=== PATIENT | male | born 1960 | race Native Hawaiian/Other Pacific Islander ===

== ENCOUNTER 2021-06-06 10:12 | Inpatient (IN) | payer OTHER ==
[~2021-06-06] VITALS: Ht 182.9 cm; Wt 96.7 kg
[2021-06-06 10:40] VITALS: BP 124/71; TEMP 98.3; Ht 182.9 cm; Wt 96.7 kg
[2021-06-06 11:52] LABS: PLATELET COUNT 250 K/uL (142-355)
[2021-06-06 12:15] LABS: POTASSIUM 3.6 mmol/L (3.6-5.2)
[2021-06-06 16:00] VITALS: BP 114/72; TEMP 97.5
[2021-06-06 20:04] VITALS: BP 116/63; TEMP 98.2
--- NOTE | 2021-06-06 23:09 | NUR ---
DECREASED FIO2 TO 45%. SPO2 96%. LITER FLOW AT 30 L/M. NOTIFIED NURSE Susan GONZALEZ RN.
[2021-06-07] VITALS (7 sets, daily range): BP systolic 107–143; BP diastolic 63–88; TEMP 97.2–99.1
--- NOTE | 2021-06-07 04:52 | NUR ---
LATE ENTRY: PATIENT WAS ASSESED AT THE BEGINNING OF THE SHIFT. PATIENT DENIED ANY PAIN BUT REPORTED SOB. PATIENT WAS 93% ON 3L NC. PHARM- ALSO CALLED TO REPORT THAT THE PATIENTS ALLERGY TO [facility] INCLUDED THE ORDERED TESSALON PEARLS. DR MCGHEE WAS CALLED AND PATIENT WAS PLACED ON HIGHFLOW AT 30L AND 50%. ALSO DC THE PEARLS AND STARTED ROBUTUSSEN DM PRN FOR COUGH. PATIENT IS NOW RESTING AND IS 94%. 0200: PATIENT ASKED FOR ASSISTANCE TO THE BSC. PATIENT HAD A LOOSE BM AND WAS HELPED BACK TO BED. PATIENT REPORTED NO PAIN OR SO. IV PORT SITE IS INTACT
--- NOTE | 2021-06-07 04:57 | NUR ---
PATIENT IS RESTING QUIETLY. NO ACUTE DISTRESS NOTED
[2021-06-07 05:29] LABS: PLATELET COUNT 214 K/uL (142-355)
[2021-06-07 05:50] LABS: POTASSIUM 3.7 mmol/L (3.6-5.2)
--- NOTE | 2021-06-07 11:02 | NUR ---
1030 PT TAKEN OFF HER BIPAP AND PLACED ON HER BIPAP MACHINE WITH 4L OXYGEN. SPO2 IS FROM 85-90%. PT DOES NOT SEEM TO BE IN ANY DISTRESS. WILL CONTONUE TO MONITOR. SAE LANG WANTEDJ TO TRY HER MACHINE.
[2021-06-08 04:16] VITALS: BP 117/65; TEMP 98
--- NOTE | 2021-06-08 06:23 | NUR ---
LATE ENTRY: 06/07/20 1900 PATIENT WAS ASSESED. PATIENT DENIED ANY PAIN OR SOB. HE IS RESTING WELL ON THE HIGHFLOW. HIS SETTINGS ARE 30L AT 45%. PATIENT IS ABLE TO USE THE BSC AND URINAL. PATIENTS IV IS CLEAN, DRY AND INTACT. 0000: PATIENT REQUESTED A DRINK. PATIENT DENIES ANY SOB OR PAIN
[2021-06-08 08:00] VITALS: BP 114/69; TEMP 98.9
[2021-06-08 08:02] LABS: PLATELET COUNT 222 K/uL (142-355)
[2021-06-08 08:15] LABS: POTASSIUM 3.7 mmol/L (3.6-5.2)
--- NOTE | 2021-06-08 08:47 | NUR ---
PT IS ON HFNC AT 30LPM AT 45% FIO2 WITH SPO2 AT 97%. RT DECREASED FIO2 TO 35%. SPO2 AT 95% NOW. WILL CONTINUE TO WEAN TOLERATED BY PT.
[2021-06-08 12:00] VITALS: BP 111/78; TEMP 98.5
--- NOTE | 2021-06-08 12:48 | NUR ---
PT SPO2 AT 98% ON 30LPM AT 35% FIO2 ON HFNC. RT DECREASED PT TO 3LPM NC AT 32% FIO2. SPO2 NOW AT 95%.
--- NOTE | 2021-06-08 15:01 | NUR ---
RT DECREASED FIO2 TO 28% AT 2LPM NC. PT TAYLOR WELL. SPO2 AT 94%
[2021-06-08 16:00] VITALS: BP 115/74; TEMP 98.3
[2021-06-08 20:00] VITALS: BP 115/78; TEMP 97.8
--- NOTE | 2021-06-08 20:40 | NUR ---
PT AWAKE LAYING IN BED WITH NO S/S OF ACUTE DISTRESS NOTED, ALERT AND ORIENTED AT THIS TIME. RESP RATE NONLABORED, O2 AT 2LPM VIA NC, TELEMETRY IN USE, LUNGS DIMINISHED TO AUSCULTATION AND COUGH NOTED AT TIMES, RADIAL PULSES INTACT/EQUAL, SKIN WARM AND DRY, BS+, DENIES ANY PAIN OR NEEDS AT THIS TIME, BROUGHT PT SOME WATER PER REQUEST. ENCOURAGED TO CALL NEEDED, RAILS UP, BED IN LOW POSITION, CALL LIGHT IN REACH, WILL MONITOR. PT ON ISOLATION FOR COVID +.
--- NOTE | 2021-06-08 22:10 | NUR ---
PT RESTING WITH EYES CLOSED WITH NO ACUTE DISTRESS NOTED, AROUSES AND DENIES ANY PROBLEMS AT THIS TIME, O2 IN USE VIA NC, TELEMETRY IN USE, IV SITE INTACT WITH NS ONGOING. GAVE NIGHTLY MEDICATIONS SEEN ON JUL, ALSO NOTE PT COUGHING ALOT SO GAVE PT ROBITUSSIN DM 10ML PO PRN FOR COUGH. PT TALKING SOME WITH STAFF. WILL MONITOR CLOSELY, RAILS UP, BED IN LOW POSITION, CALL LIGHT IN REACH, ENCOURAGED TO CALL NEEDED PT ACKNOWLEDGES UNDERSTANDING.
--- NOTE | 2021-06-08 22:48 | NUR ---
PT RESTING IN POSITION OF COMFORT IN BED WITH EYES CLOSED, NO S/S OF DISTRESS NOTED, NO COUGHING OR REACTIONS NOTED TO PRN ROBITUSSIN. WILL MONITOR CLOSELY, O2 IN USE ALONG WITH TELEMETRY, RESP RATE NONLABORED, RAILS UP, BED IN LOW POSITION.
[2021-06-09] VITALS: BP 112/77; TEMP 97.5
--- NOTE | 2021-06-09 00:50 | NUR ---
RESTING WITH EYES CLOSED IN BED, NO S/S OF PAIN OR DISTRESS NOTED, WILL MONITOR CLOSELY.
--- NOTE | 2021-06-09 02:20 | NUR ---
PT AWAKE AND ORIENTED WITH NO ACUTE DISTRESS NOTED, NOTE PT SITTING UP ON BEDSIDE COMMODE, DENIES ANY NEEDS AT THIS TIME, O2 AT 2LPM VIA NC, TELEMETRY IN USE, IV INTACT WITH NS INFUSING AT 100ML/HR AND PORT INTACT TO L UPPER CHEST, ENCOURAGED TO CALL NEEDED PT ACKNOWLEDGES UNDERSTANDING, CALL LIGHT IN REACH.
[2021-06-09 04:00] VITALS: BP 120/84; TEMP 97.7
--- NOTE | 2021-06-09 04:46 | NUR ---
AWAKE AND ORIENTED WITH NO DISTRESS NOTED, DENIES ANY NEEDS AT THIS TIME, O2 IN USE VIA NC, TELEMETRY IN USE, RESP RATE NONLABORED, IV INTACT WITH NS AT 100ML/HR, PORT INTACT TO L CHEST. ENCOURAGED TO CALL NEEDED, RAILS UP, BED IN LOW POSITION, CALL LIGHT IN REACH.
--- NOTE | 2021-06-09 04:55 | NUR ---
RESPIRATORY STAFF INFORMED SOFTWARE BUSINESS ANALYST THAT PT C/O PAIN TO HIS R ANKLE. PT FOUND RESTING WITH EYES CLOSED, AROUSES TO SOFTWARE BUSINESS ANALYST TOUCHING HIM. C/O PAIN TO R ANKLE THAT IS CONSTANT ACHING RATES PAIN A 10 ON SCALE. GAVE TYLENOL 1000MG PO PRN FOR PAIN. WILL MONITOR CLOSELY, RAILS UP, BED IN LOW POSITION, CALL LIGHT IN REACH.
--- NOTE | 2021-06-09 05:25 | NUR ---
RESTING WITH EYES CLOSED, NO S/S OF PAIN OR DISTRESS NOTED, NO S/S OF REACTIONS NOTED TO PRN TYLENOL. WILL MONITOR CLOSELY, RAILS UP, BED IN LOW POSITION, CALL LIGHT IN REACH.
[2021-06-09 07:22] LABS: PLATELET COUNT 244 K/uL (142-355)
[2021-06-09 08:06] VITALS: BP 85/53; TEMP 98
[2021-06-09 08:26] LABS: POTASSIUM 3.3 mmol/L (3.6-5.2)
[2021-06-09 12:00] VITALS: BP 104/71; TEMP 97.7
--- NOTE | 2021-06-09 13:47 | NUR ---
PT ALERT AND AWAKE WATCHING TV WHILE SITTING UP IN CHAIR SINCE BREAKFAST. AM MEDS ADMINISTERED ORDERED. TOLERATED WELL WITH NO DIFFICULTY SWALLOWING. PER PCP(LITZY) WEAN PT OFF O2 VIA NC AT 2LPM. PT ON ROOM AIR AND SATS=97%. IV SITE TO LFA INTACT WITH NO S/S OF INFILTRATION. NS INFUSING AT 100ML/HR. PT HAS PORT-A-CATH TO LEFT CHEST WALL AND SALINE LOCK. 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 PORT-A-CATH WAS PLACED IN 2020 FOR CHEMO TX. HAS BEEN IN REMISSION FOR 4-5 MONTHS BUT CONTIUES TO F/U WITH MD QUARTERLY FOR CHECK-UPS. DENIES ANY PAIN/DISCOMFORT. PT ED ON USE OF MDI'S AND INCINTIVE SPIROMETER. CONTINUE TO MONITOR.
[2021-06-09 16:00] VITALS: BP 102/66; TEMP 98.1
--- NOTE | 2021-06-09 16:00 | NUR ---
IS HERE ROUNDING ON PATIENT. PHYSICAL THERAPY WITH PATIENT GETTING CPT DONE AT THIS TIME. PATIENT STATES " THIS COUGH, IF I CAN GET IT TO QUIT.. I WILL BE OK". NEW ORDERS GIVEN FOR LABS IN THE MORNING AND POSSIBLE DISCHARGE.
--- NOTE | 2021-06-09 19:00 | NUR ---
PT STAYED UP IN CHAIR MOST OF THE DAY. C/O PAIN TO RIGHT ANKLE AND ADMINISTERED TYLENOL ORDERED FOR PAIN. PT BELIEVES PAIN TO BE R/T GOUT OR ARTHRITIS. NO PREVIOUS INJURIES NOTED. NAD NOTED. ALERT AND ORIENTED. HAS DIFFICULTY HEARING AT TIMES, MUST SPEAK LOUD IN ORDER FOR PT TO HEAR. COMPLIANT WITH MEDS AND TX. CONTINUES TO SAT AT 97% ON ROOM AIR, NO O2 NEEDED. CONTINUE TO MONITOR.
[2021-06-09 20:00] VITALS: BP 120/81; TEMP 98.3
--- NOTE | 2021-06-09 21:55 | NUR ---
PT AWAKE, ALERT, AND ORIENTED SITTING UP IN BED WITH HOB IN HIGH ALEXANDER'S POSITION. APPEARS TO FEEL BETTER TODAY AND IS TALKATIVE WITH SECRETARY RECEPTIONIST, PT STATES HE FEELS ALOT BETTER TODAY COMPARED TO YESTERDAY. RESP RATE NONLABORED, ON ROOM AIR, TELEMETRY IN USE, PORT INTACT TO L UPPER CHEST SALINE LOCK, IV INTACT TO L FA WITH NS INFUSING AT 100ML/HR WITH NO PROBLEMS NOTED TO SITE, SKIN WARM AND DRY, BS+, LUNGS MORE CLEAR TODAY TO AUSCULTATION. DENIES ANY NEEDS AT THIS TIME, RAILS UP, BED IN LOW POSITION, CALL LIGHT IN REACH, ENCOURAGED TO CALL NEEDED PT ACKNOWLEDGES UNDERSTANDING.
[2021-06-10] VITALS: BP 96/60; TEMP 98.2
[2021-06-10 04:00] VITALS: BP 128/87; TEMP 97.6
--- NOTE | 2021-06-10 04:04 | NUR ---
RESTING IN BED WITH EYES CLOSED, NO S/S OF PAIN OR DISTRESS NOTED, WILL MONITOR CLOSELY.
[2021-06-10 05:17] LABS: PLATELET COUNT 298 K/uL (142-355)
[2021-06-10 05:38] LABS: POTASSIUM 3.6 mmol/L (3.6-5.2)
[2021-06-10 08:00] VITALS: BP 127/84; TEMP 98.3
[2021-06-10 12:00] VITALS: BP 117/79; TEMP 98.1
[2021-06-10 16:00] VITALS: BP 122/82; TEMP 98.1
[2021-06-10 20:28] VITALS: BP 116/80; TEMP 99.4
[2021-06-11 00:20] VITALS: BP 122/86; TEMP 98.8
--- NOTE | 2021-06-11 01:45 | NUR ---
LATE ENTRY: 06/10/211929 PATIENT IS RESTING WELL. PATIENT DENIES ANY PAIN OR SOB ON ROOM AIR. PATOIENTS LABS ARE VASTING IMPROVING WELL HIS VITALS. PATIENTS COUGH HAS LESSENED GREATLY AND HIS LUNGS ARE CLEAR, ALTHOUGH LEFT LOBE IS SLIGHTLY DIMMISHED. PATIENT IS UP AND AT [place] AND ALERT AND ORIENTED. PATIENTS IV SITE IS CLEAN DRY AND INTACT. PATIENTS WAS SPEAKING TO FAMILY MEMBERS
--- NOTE | 2021-06-11 01:47 | NUR ---
PATIENT IS SLEEPING WELL. RESPIRATIONS ARE EVEN AND NON LABORED
[2021-06-11 03:56] VITALS: BP 100/64; TEMP 97.6
[2021-06-11 05:00] LABS: PLATELET COUNT 298 K/uL (142-355)
[2021-06-11 05:17] LABS: POTASSIUM 4.1 mmol/L (3.6-5.2)
[2021-06-11 08:00] VITALS: BP 115/65; TEMP 97.3
[2021-06-11 12:00] VITALS: BP 121/76; TEMP 98.3
--- NOTE | 2021-06-11 14:04 | NUR ---
PATIENT DISCHARGED HOME WITH SON DRIVING. PERIPHERAL IV D/C WITH TIP INTACT AND PORT DEACCESSED. PATIENT TOLERATED WELL. DISCHARGE INSTRUCTIONS PROVIDED AND PATIENT VERBALIZED UNDERSTANDING.
== END 2021-06-11 14:05 | disposition home or self-care (01) | DRG 177 ==
LOC: MED/SURG 10:12
PROVIDERS: ADMIT Family Medicine; ATTEND Family Medicine
DX: U07.1 COVID-19 (principal); J12.82 Pneumonia due to coronavirus disease 2019; R05.1 Acute cough; R06.00 Dyspnea, unspecified; M62.81 Muscle weakness (generalized); R53.81 Other malaise
CPT/HCPCS: 36415; 36600; 80053; 82728; 82805; 83735; 83880; 84100; 85027; 85379; 86140; 87040; 87070; 87205; 87502; 87635; 94667; 94668; 94760; 96366; 96367; 96372; 96374; 96375; J0248; J0456; J0696; J1200; J1642; J1650; U0003